=== PATIENT | male | born 1955 | race Caucasian/White ===

== ENCOUNTER 2016-09-19 12:39 | Emergency (ER) | payer OTHER ==
[~2016-09-19] VITALS: Ht 177.8 cm; Wt 70.0 kg
[~2016-09-19 12:39] MED LIST: MOTR40DR
[2016-09-19 12:44] VITALS: BP 158/102; PULSE 115; RESP 14; TEMP 98.1; O2SAT 95
--- NOTE | 2016-09-19 14:49 | PD ---
HPI Chief Complaint: Skin Problem Time Seen by Provider: 14:37 Travel History International Travel<30 days: No Contact w/Intl Traveler<30days: No Traveled to known affect area: No History of Present Illness HPI 60- year old male presents to the emergency department with complaints of rash on bilateral volar wrists for the past five days. He is concerned because he recently started new medication (voltaren gel) and it said on the insert to present to the ER with rash because it could be life-threatening. He is primarily applying this gel to his shoulders. He does relate a history of recently cutting down a cactus and got some of the spines on his arms as he worked. Denies fevers/sob/choking sensation. Has tried antibiotic cream at home without relief. PFSH Past Medical History Blood Disorders: No Cancer: No Cardiovascular Problems: No Chemotherapy: No Endocrine: No Genitourinary: No Immune Disorder: No Musculoskeletal: No Neurologic: No Psychiatric: No Respiratory: No Radiation Therapy: No Past Surgical History AICD: No Body Medical Devices: HEART MURMUR; HYPOGLYCEMIA Joint Replacement: No Pacemaker: No Tympanostomy Tube: Yes Social History Tobacco Use: Yes (1 PPD) Substance Use: No Allergies-Medications (Allergen,Severity, Reaction): Coded Allergies: No Known Allergies (Verified , 09/19/16) Reported Meds & Prescriptions Reported Meds & Active Scripts Active Prednisone 20 Mg Tab 60 Mg PO DAILY 5 Days Reported Diclofenac Topical 1% Gel 1 Applic TOPICAL TID Pravastatin 40 Mg Tab 40 Mg PO DAILY Omeprazole 20 Mg Tab 20 Mg PO DAILY Review of Systems Except as stated in HPI: all other systems reviewed are Neg Physical Exam Narrative GENERAL: SKIN: Warm and dry. There are very small raised papules on the volar aspect of both wrists and up to mid forearm. Erythema only at the base of these lesions. No vesicles. Mildly pruritic. Consistent with contact dermatitis, but could be consistent with folliculitis if on an area where he had hair follicles. HEAD: Normocephalic. EYES: No scleral icterus. No injection or drainage. NECK: Supple, trachea midline. No JVD or lymphadenopathy. CARDIOVASCULAR: HR checked by me at time of exam is 80. Regular rate and rhythm without murmurs, gallops, or rubs. RESPIRATORY: Breath sounds equal bilaterally. No accessory muscle use. GASTROINTESTINAL: Abdomen soft, non-tender, nondistended. MUSCULOSKELETAL: No cyanosis, or edema. BACK: Nontender without obvious deformity. No CVA tenderness. Data Data Last Documented VS Vital Signs Date Time Temp Pulse Resp B/P Pulse Ox O2 Delivery O2 Flow Rate FiO2 09/19/16 15:01 90 17 153/88 97 Room Air 09/19/16 12:44 98.1 [facility] Medical Decision Making Medical Screen Exam Complete: Yes Emergency Medical Condition: Yes Differential Diagnosis Contact dermatitis, Folliculitis, Medication reaction unlikely. Narrative Course Patient roomed in ED> He appears well. Hr retaken by me and nursing and WNL. Patient has mild rash likely contact dermatitis from vegetable matter given history of working in the yard. Discussed symptomatic management. Hold voltaren gel until rash resolves. Follow up PCP (MIMI). Diagnosis Primary Impression: Contact dermatitis Qualified Code: L25.9 - Contact dermatitis, unspecified contact dermatitis type, unspecified trigger Additional Instructions: Use calamine lotion and Benadryl by mouth as needed for itching Med/Other Pt SpecificInfo: Prescription(s) given Scripts Prednisone 20 Mg Tab60 Mg PO DAILY 5 Days Ref 0 Prov:Tarun Arnold MD 09/19/16 Disposition: 01 DISCHARGE HOME Condition: Stable Tarun Arnold MD Sep 19, 2016 14:49
[2016-09-19] MEDS ORDERED: OMEP20TA PO (14:50)
[2016-09-19] MEDS ORDERED: DICL1GEL7 TOPICAL (14:50)
[2016-09-19] MEDS ORDERED: PRAV40TA2 PO (14:50)
[2016-09-19] MEDS ORDERED: PRED20 PO (15:00)
[2016-09-19 15:01] VITALS: BP 153/88; PULSE 90; RESP 17; O2SAT 97
== END 2016-09-19 15:22 | disposition home or self-care (01) ==
LOC: NEPA 12:39
DX: L25.9 Unspecified contact dermatitis, unspecified cause (principal); F17.210 Nicotine dependence, cigarettes, uncomplicated
CPT/HCPCS: 99283